=== PATIENT | male | born 1965 | race Two or more races ===

== ENCOUNTER → 2024-06-02 | Emergency (ER) | payer OTHER ==
[~2024-06-02] VITALS: Ht 190.5 cm; Wt 72.0 kg
[~2024-06-02] MED LIST: BUPR1PAT28 TD; HYDR2TAB5 PO
[2024-06-02 09:21] VITALS: BP 147/64; PULSE 70; RESP 18; TEMP 97.9; O2SAT 97
[2024-06-02] MEDS: KETOROLAC TROMETHAMINE 30 MG/ML VIAL IM ONE (10:12)
== END | disposition still patient (30) ==
LOC: EMS 09:17
DX: M19.012 Primary osteoarthritis, left shoulder (principal); G89.29 Other chronic pain; M25.512 Pain in left shoulder; F17.210 Nicotine dependence, cigarettes, uncomplicated
CPT/HCPCS: 99283; 96372; J1885